=== PATIENT | female | born 1995 | race Caucasian/White ===

== ENCOUNTER → 2023-06-07 13:11 | Outpatient (REF) | payer BC, SELFPAY ==
[2023-06-07 13:47] LABS: Urine Albumin Negative (Neg - Trace); Urine Bilirubin Negative (Negative); Urine Character Clear (Clear); Urine Color Yellow; Urine Glucose Negative (Negative); Urine Ketone Negative (Negative); Urine Leukocyte Negative (Negative); Urine Nitrite Negative (Negative); Urine Occult Blood Negative (Negative); Urine Urobilinogen Negative (Neg - 1+)
[2023-06-07 13:49] LABS: % Basophils 0.3 % (0-2); % Eosinophils 0.8 % (0-6); % Immature Granulocytes 0.3 % (0-0.5); % Lymphocytes 23.1 % (20.5-51.1); % Monocytes 7.3 % (1.7-9.3); % Neutrophils 68.2 % (42.2-75.2); Absolute Eosinophils 0.1 10^3/uL (0-0.7); Absolute Lymphocytes 1.5 10^3/uL (1.2-3.4); Absolute Monocytes 0.5 10^3/uL (0.1-0.6); Absolute Neutrophils 4.3 10^3/uL (1.4-6.5); Hematocrit 34.6 % (37.0-47.0); Hemoglobin 12.3 g/dL (12.0-16.0); Mean Corp Hgb Conc. 35.5 g/dL (33.0-37.0); Mean Corpuscular Hgb 30.2 pg (27.0-31.0); Mean Platelet Volume 10.9 fL (7.4-10.4); Nucleated Red Blood Cells % 0 %; Platelet Count 255 10^3/uL (130-400); Red Blood Cell Count 4.07 10^6/uL (4.20-5.40); Red Cell Dist. Width 12.9 % (11.5-14.5); White Blood Cell Count 6.3 10^3/uL (4.8-10.8)
[2023-06-07 14:43] LABS: Free T4 0.85 ng/dl (0.78-2.19)
[2023-06-07 14:57] LABS: TSH 9.82 uIU/ml (0.47-4.68)
[2023-06-07 14:59] LABS: Hepatitis B Surface Antigen Negative (Negative)
[2023-06-07 15:08] LABS: HIV Combo Negative (Negative)
[2023-06-07 19:40] LABS: Rubella Positive
[2023-06-07 21:15] LABS: Hepatitis C Antibody Negative (Negative)
[2023-06-08 14:27] LABS: Syphilis/T. pallidum Ab Reflex Negative (Negative)
== END ==
LOC: REG 13:11
PROVIDERS: ATTENDING PHYSICIAN Nurse Practitioner Family; FAMILY PHYSICIAN Nurse Practitioner Adult Health
DX: Z34.90 Encounter for supervision of normal pregnancy, unspecified, unspecified trimester (principal)
CPT/HCPCS: 36415; 80055; 81003; 84439; 84443; 84702; 86803; 86850; 86900; 86901; 87086; 87389

== ENCOUNTER → 2023-07-04 11:55 | Outpatient (REF) | payer BC, SELFPAY ==
[2023-07-04 14:26] LABS: Free T4 0.88 ng/dl (0.78-2.19)
[2023-07-04 14:40] LABS: TSH 5.95 uIU/ml (0.47-4.68)
== END ==
LOC: REG 11:55
PROVIDERS: ATTENDING PHYSICIAN Nurse Practitioner Adult Health
DX: R94.6 Abnormal results of thyroid function studies (principal); E04.9 Nontoxic goiter, unspecified
CPT/HCPCS: 36415; 84439; 84443

== ENCOUNTER → 2023-07-17 16:24 | Outpatient (REF) | payer BC, SELFPAY | LOC: PNTC 16:24 | PROVIDERS: ATTENDING PHYSICIAN Obstetrics & Gynecology | DX: Z36.0 Encounter for antenatal screening for chromosomal anomalies (principal); Z36.82 Encounter for antenatal screening for nuchal translucency | CPT/HCPCS: 36415; 76801; 76813 ==

== ENCOUNTER → 2023-07-25 17:10 | Outpatient (REF) | payer BC, SELFPAY | LOC: CLAB 17:10 | PROVIDERS: ATTENDING PHYSICIAN Obstetrics & Gynecology | DX: Z34.90 Encounter for supervision of normal pregnancy, unspecified, unspecified trimester (principal); Z11.3 Encounter for screening for infections with a predominantly sexual mode of transmission | CPT/HCPCS: 87491; 87591 ==

== ENCOUNTER → 2023-08-08 15:27 | Outpatient (REF) | payer BC, SELFPAY | LOC: PNTC 15:27 | PROVIDERS: ATTENDING PHYSICIAN Obstetrics & Gynecology | DX: O35.5XX0 Maternal care for (suspected) damage to fetus by drugs, not applicable or unspecified (principal); Q51.3 Bicornate uterus | CPT/HCPCS: 76805 ==

== ENCOUNTER → 2023-09-04 16:28 | Outpatient (REF) | payer BC, SELFPAY | LOC: PNTC 16:28 | PROVIDERS: ATTENDING PHYSICIAN Obstetrics & Gynecology | DX: O35.5XX0 Maternal care for (suspected) damage to fetus by drugs, not applicable or unspecified (principal); Q51.3 Bicornate uterus | CPT/HCPCS: 76811 ==

== ENCOUNTER → 2023-10-17 10:37 | Outpatient (REF) | payer BC, SELFPAY ==
[2023-10-17 12:57] LABS: TSH Reflex To Free T4 2.03 uIU/ml (0.47-4.68)
== END ==
LOC: REG 10:37
PROVIDERS: ATTENDING PHYSICIAN Obstetrics & Gynecology; FAMILY PHYSICIAN Nurse Practitioner Adult Health
DX: E03.9 Hypothyroidism, unspecified (principal)
CPT/HCPCS: 36415; 84443

== ENCOUNTER → 2023-10-17 15:35 | Outpatient (REF) | payer BC, SELFPAY | LOC: PNTC 15:35 | PROVIDERS: ATTENDING PHYSICIAN Obstetrics & Gynecology | DX: Q51.3 Bicornate uterus (principal); O35.5XX0 Maternal care for (suspected) damage to fetus by drugs, not applicable or unspecified | CPT/HCPCS: 76816 ==

== ENCOUNTER → 2023-10-23 15:08 | Outpatient (REF) | payer BC, SELFPAY ==
[2023-10-23 16:50] LABS: Hematocrit 29.8 % (37.0-47.0); Hemoglobin 10.3 g/dL (12.0-16.0); Mean Corp Hgb Conc. 34.6 g/dL (33.0-37.0); Mean Corpuscular Hgb 29.3 pg (27.0-31.0); Mean Corpuscular Volume 84.7 fL (81.0-99.0); Mean Platelet Volume 12.3 fL (7.4-10.4); Platelet Count 180 10^3/uL (130-400); Red Blood Cell Count 3.52 10^6/uL (4.20-5.40); Red Cell Dist. Width 12.7 % (11.5-14.5); White Blood Cell Count 7.2 10^3/uL (4.8-10.8)
[2023-10-23 17:17] LABS: 1 Hour after 50gm 149 mg/dl
== END ==
LOC: REG 15:08
PROVIDERS: ATTENDING PHYSICIAN Obstetrics & Gynecology
DX: Z34.82 Encounter for supervision of other normal pregnancy, second trimester (principal)
CPT/HCPCS: 36415; 82950; 85027; 86780

== ENCOUNTER → 2023-11-28 15:33 | Outpatient (REF) | payer BC, SELFPAY | LOC: PNTC 15:33 | PROVIDERS: ATTENDING PHYSICIAN Obstetrics & Gynecology | DX: O99.320 Drug use complicating pregnancy, unspecified trimester (principal); Q51.3 Bicornate uterus | CPT/HCPCS: 76816 ==

== ENCOUNTER → 2023-12-17 06:40 | Outpatient (REF) | payer BC, SELFPAY ==
[2023-12-17 08:50] LABS: ALT (SGPT) 20 U/L (0-35); AST (SGOT) 25 U/L (14-36); Albumin 3.4 g/dl (3.5-5.0); Alkaline Phosphatase 174 U/L (38-126); Blood Urea Nitrogen 9 mg/dl (7-17); Calcium 8.8 mg/dl (8.4-10.2); Carbon Dioxide 20 mmol/L (22-30); Chloride 105 mmol/L (98-107); Glucose 79 mg/dl (70-99); Potassium 4.3 mmol/L (3.5-5.1); Sodium 136 mmol/L (135-145); Total Bilirubin 0.2 mg/dl (0.2-1.3); Total Cholesterol 311 mg/dl (50-199); Total Protein 5.9 g/dl (6.3-8.2); Triglyceride 223 mg/dl (10-149); Very Low Density Lipoprotein 44 mg/dl (0-30); eGFR > 60.00
[2023-12-17 08:54] LABS: % Basophils 0.3 % (0-2); % Eosinophils 0.9 % (0-6); % Immature Granulocytes 0.7 % (0-0.5); % Lymphocytes 19.2 % (20.5-51.1); % Monocytes 9.9 % (1.7-9.3); Absolute Eosinophils 0.1 10^3/uL (0-0.7); Absolute Immature Granulocytes 0.1 10^3/uL (0-0.05); Absolute Lymphocytes 1.5 10^3/uL (1.2-3.4); Absolute Monocytes 0.8 10^3/uL (0.1-0.6); Absolute Neutrophils 5.3 10^3/uL (1.4-6.5); Hematocrit 30.6 % (37.0-47.0); Hemoglobin 9.7 g/dL (12.0-16.0); Mean Corp Hgb Conc. 31.7 g/dL (33.0-37.0); Mean Corpuscular Hgb 25.1 pg (27.0-31.0); Mean Corpuscular Volume 79.3 fL (81.0-99.0); Mean Platelet Volume 13.2 fL (7.4-10.4); Nucleated Red Blood Cells % 0 %; Platelet Count 167 10^3/uL (130-400); Red Blood Cell Count 3.86 10^6/uL (4.20-5.40); Red Cell Dist. Width 14.2 % (11.5-14.5); White Blood Cell Count 7.6 10^3/uL (4.8-10.8)
[2023-12-17 09:15] LABS: TSH 3.14 uIU/ml (0.47-4.68)
[2023-12-17 10:05] LABS: HDL Cholesterol 115 mg/dl; LDL Cholesterol, Calculated 152 mg/dl
[2023-12-17 14:54] LABS: Iron 235 ug/dl (37-170)
[2023-12-17 15:06] LABS: Percent Saturation 45 % (20-50); Total Iron Binding Capacity 522 ug/dl (265-497)
[2023-12-17 15:31] LABS: Ferritin 6.4 ng/ml (6.24-137)
== END ==
LOC: REG 06:40
PROVIDERS: ATTENDING PHYSICIAN Nurse Practitioner Adult Health
DX: Z00.00 Encounter for general adult medical examination without abnormal findings (principal)
CPT/HCPCS: 36415; 80053; 80061; 82728; 83540; 83550; 84443; 85025

== ENCOUNTER 2023-12-24 10:50 | Outpatient (RCR) | payer BC, SELFPAY ==
[2023-12-24 11:00] VITALS: BP 125/69
[2023-12-24] MEDS: VENOFER 110 MG IV (11:05)
[2023-12-24 12:09] VITALS: BP 114/67
== END 2023-12-24 23:59 | disposition home or self-care (01) ==
LOC: OID 10:50
PROVIDERS: ATTENDING PHYSICIAN Internal Medicine Hematology & Oncology; FAMILY PHYSICIAN Nurse Practitioner Adult Health
DX: D50.9 Iron deficiency anemia, unspecified (principal); O99.013 Anemia complicating pregnancy, third trimester; R06.02 Shortness of breath; R53.83 Other fatigue; N92.0 Excessive and frequent menstruation with regular cycle; T45.4X5A Adverse effect of iron and its compounds, initial encounter; Y93.89 Activity, other specified
CPT/HCPCS: 96365; J1756

== ENCOUNTER → 2023-12-27 15:38 | Outpatient (REF) | payer BC, SELFPAY | LOC: PNTC 15:38 | PROVIDERS: ATTENDING PHYSICIAN Obstetrics & Gynecology | DX: O99.320 Drug use complicating pregnancy, unspecified trimester (principal); Q51.3 Bicornate uterus | CPT/HCPCS: 76816 ==

== ENCOUNTER → 2023-12-27 16:18 | Outpatient (REF) | payer BC, SELFPAY | LOC: CPAP 16:18 | PROVIDERS: ATTENDING PHYSICIAN Obstetrics & Gynecology | DX: Z36.85 Encounter for antenatal screening for Streptococcus B (principal); Z34.83 Encounter for supervision of other normal pregnancy, third trimester | CPT/HCPCS: 87070 ==

== ENCOUNTER 2024-01-09 14:36 | Outpatient (RCR) | payer BC, SELFPAY ==
[2023-12-28 11:45] VITALS: BP 136/66
[2023-12-28] MEDS: VENOFER 110 MG IV (11:47)
[2023-12-28 13:00] VITALS: BP 112/64
[2023-12-31] MEDS: VENOFER 110 MG IV (13:27)
[2023-12-31 13:31] VITALS: BP 117/67
[2024-01-03 11:45] VITALS: BP 132/73
[2024-01-03] MEDS: VENOFER 110 MG IV (12:01)
[2024-01-03 13:00] LABS: % Basophils 0.7 % (0-2); % Eosinophils 0.3 % (0-6); % Immature Granulocytes 0.2 % (0-0.5); % Lymphocytes 21.4 % (20.5-51.1); % Neutrophils 69.4 % (42.2-75.2); Absolute Lymphocytes 1.2 10^3/uL (1.2-3.4); Absolute Monocytes 0.5 10^3/uL (0.1-0.6); Hematocrit 31.9 % (37.0-47.0); Hemoglobin 10.5 g/dL (12.0-16.0); Mean Corp Hgb Conc. 32.9 g/dL (33.0-37.0); Mean Corpuscular Hgb 26.8 pg (27.0-31.0); Mean Corpuscular Volume 81.4 fL (81.0-99.0); Mean Platelet Volume 12.5 fL (7.4-10.4); Platelet Count 166 10^3/uL (130-400); Red Blood Cell Count 3.92 10^6/uL (4.20-5.40); Red Cell Dist. Width 17.9 % (11.5-14.5); White Blood Cell Count 5.8 10^3/uL (4.8-10.8)
[2024-01-03 13:05] VITALS: BP 114/74
[2024-01-09 14:59] LABS: % Basophils 0.7 % (0-2); % Eosinophils 0.4 % (0-6); % Immature Granulocytes 0.2 % (0-0.5); % Lymphocytes 24.5 % (20.5-51.1); % Monocytes 6.2 % (1.7-9.3); Absolute Lymphocytes 1.3 10^3/uL (1.2-3.4); Absolute Monocytes 0.3 10^3/uL (0.1-0.6); Absolute Neutrophils 3.7 10^3/uL (1.4-6.5); Hematocrit 32.7 % (37.0-47.0); Hemoglobin 10.8 g/dL (12.0-16.0); Mean Corpuscular Hgb 26.9 pg (27.0-31.0); Mean Corpuscular Volume 81.3 fL (81.0-99.0); Mean Platelet Volume 11.8 fL (7.4-10.4); Platelet Count 144 10^3/uL (130-400); Red Blood Cell Count 4.02 10^6/uL (4.20-5.40); Red Cell Dist. Width 19.1 % (11.5-14.5); White Blood Cell Count 5.5 10^3/uL (4.8-10.8)
[2024-01-09] MEDS: VENOFER 110 MG IV (15:01)
[2024-01-09 15:10] VITALS: BP 120/73
[2024-01-09 16:01] VITALS: BP 117/75
== END 2024-01-24 23:59 | disposition home or self-care (01) ==
LOC: OID 14:36
PROVIDERS: ATTENDING PHYSICIAN Internal Medicine Hematology & Oncology; FAMILY PHYSICIAN Nurse Practitioner Adult Health
DX: D50.9 Iron deficiency anemia, unspecified (principal); D63.8 Anemia in other chronic diseases classified elsewhere; Z3A.36 36 weeks gestation of pregnancy
CPT/HCPCS: 36415; 85025; 96365; J1756

== ENCOUNTER 2024-01-12 22:25 | Inpatient (IN) | payer BC, SELFPAY ==
[2024-01-12 22:44] VITALS: BMI 26.3
[2024-01-12 23:12] LABS: % Basophils 0.2 % (0-2); % Eosinophils 0.3 % (0-6); % Immature Granulocytes 0.1 % (0-0.5); % Lymphocytes 16.8 % (20.5-51.1); % Neutrophils 74.6 % (42.2-75.2); Absolute Lymphocytes 1.5 10^3/uL (1.2-3.4); Absolute Monocytes 0.7 10^3/uL (0.1-0.6); Absolute Neutrophils 6.6 10^3/uL (1.4-6.5); Hematocrit 30.7 % (37.0-47.0); Hemoglobin 10.3 g/dL (12.0-16.0); Mean Corp Hgb Conc. 33.6 g/dL (33.0-37.0); Mean Corpuscular Hgb 26.5 pg (27.0-31.0); Mean Corpuscular Volume 78.9 fL (81.0-99.0); Mean Platelet Volume 12.2 fL (7.4-10.4); Nucleated Red Blood Cells % 0 %; Platelet Count 162 10^3/uL (130-400); Red Blood Cell Count 3.89 10^6/uL (4.20-5.40); Red Cell Dist. Width 19.5 % (11.5-14.5); White Blood Cell Count 8.9 10^3/uL (4.8-10.8)
[2024-01-12] MEDS: LR 1000 IV ×2 (23:20→23:53)
[2024-01-12] MEDS: SUBLIMAZE 100 MCG EPIDURAL (23:35)
[2024-01-12] MEDS: FENTANYL/BUPIVACAINE 100 EPIDURAL (23:35)
[2024-01-13] MEDS: LR 1000 IV (03:39)
[2024-01-13 04:02] VITALS: BP 127/78
[2024-01-13] MEDS: PITOCIN 30 UNITS/NSS 500 ML IV (07:48)
[2024-01-13] MEDS: FENTANYL/BUPIVACAINE 100 EPIDURAL (08:59)
[2024-01-14] MEDS: MOTRIN 600 MG PO (03:41)
[2024-01-14] MEDS: TYLENOL 650 MG PO (03:41)
[2024-01-14 04:15] LABS: Hemoglobin 9.4 g/dL (12.0-16.0)
[2024-01-14] MEDS: SYNTHROID 88 MCG PO (05:58)
[2024-01-14] MEDS: PRENATAL PLUS 1 TABLET PO (09:29)
[2024-01-15 16:26] LABS: Syphilis/T. pallidum Ab Reflex Negative (Negative)
== END 2024-01-14 17:16 | disposition home or self-care (01) | DRG 806 ==
LOC: LDRP 22:25
PROVIDERS: ADMITTING PHYSICIAN Obstetrics & Gynecology; FAMILY PHYSICIAN Nurse Practitioner Adult Health
PROC: 0HQ9XZZ Repair Perineum Skin, External Approach (ICD-10-PCS; 2024-01-13)
PROC: 10E0XZZ Delivery of Products of Conception, External Approach (ICD-10-PCS; 2024-01-13)
DX: O34.03 Maternal care for unspecified congenital malformation of uterus, third trimester (principal); O98.32 Other infections with a predominantly sexual mode of transmission complicating childbirth; Z37.0 Single live birth; O99.284 Endocrine, nutritional and metabolic diseases complicating childbirth; E03.9 Hypothyroidism, unspecified; Z3A.39 39 weeks gestation of pregnancy; O70.0 First degree perineal laceration during delivery; A60.00 Herpesviral infection of urogenital system, unspecified; O99.344 Other mental disorders complicating childbirth; F41.9 Anxiety disorder, unspecified; O99.02 Anemia complicating childbirth; D64.9 Anemia, unspecified; Q51.3 Bicornate uterus; Z98.82 Breast implant status; Z83.3 Family history of diabetes mellitus; Z82.49 Family history of ischemic heart disease and other diseases of the circulatory system; Z80.8 Family history of malignant neoplasm of other organs or systems; Z87.891 Personal history of nicotine dependence
CPT/HCPCS: 85014; 85018; 85025; 86780; 86850; 86900; 86901

== ENCOUNTER → 2024-02-18 07:12 | Outpatient (REF) | payer BC, SELFPAY ==
[2024-02-18 08:49] LABS: TSH Reflex To Free T4 1.79 uIU/ml (0.47-4.68)
== END ==
LOC: REG 07:12
PROVIDERS: ATTENDING PHYSICIAN Nurse Practitioner Adult Health
DX: O90.5 Postpartum thyroiditis (principal)
CPT/HCPCS: 36415; 84443

== ENCOUNTER → 2024-04-10 16:07 | Outpatient (REF) | payer BC, SELFPAY | LOC: MRI 3T 16:07 | PROVIDERS: ATTENDING PHYSICIAN Nurse Practitioner Adult Health | DX: R51.9 Headache, unspecified (principal) | CPT/HCPCS: 70551 ==

== ENCOUNTER → 2025-02-18 14:14 | Outpatient (REF) | payer BC, SELFPAY | LOC: PAVMRI 14:14 | PROVIDERS: ATTENDING PHYSICIAN Nurse Practitioner Adult Health | DX: G93.9 Disorder of brain, unspecified (principal) | CPT/HCPCS: 70553; A9575 ==

== ENCOUNTER → 2025-03-16 06:41 | Outpatient (REF) | payer BC, SELFPAY ==
[2025-03-16 07:49] LABS: Hematocrit 39.9 % (37.0-47.0); Hemoglobin 13.2 g/dL (12.0-16.0); Mean Corp Hgb Conc. 33.1 g/dL (33.0-37.0); Mean Corpuscular Volume 88.9 fL (81.0-99.0); Nucleated Red Blood Cells % 0 %; Platelet Count 256 10^3/uL (130-400); Red Cell Dist. Width 13.0 % (11.5-14.5)
[2025-03-16 09:00] LABS: Ferritin 22.3 ng/ml (6.24-137)
[2025-03-16 09:16] LABS: ALT (SGPT) 13 U/L (0-35); AST (SGOT) 18 U/L (14-36); Albumin 4.7 g/dl (3.5-5.0); Alkaline Phosphatase 49 U/L (38-126); Blood Urea Nitrogen 12 mg/dl (7-17); Calcium 9.6 mg/dl (8.4-10.2); Carbon Dioxide 29 mmol/L (22-30); Chloride 101 mmol/L (98-107); Glucose 95 mg/dl (70-99); HDL Cholesterol 107 mg/dl; Iron 88 ug/dl (37-170); LDL Cholesterol, Calculated 99 mg/dl; Potassium 4.6 mmol/L (3.5-5.1); Sodium 136 mmol/L (135-145); Total Protein 7.7 g/dl (6.3-8.2); Very Low Density Lipoprotein 19 mg/dl (0-30); eGFR > 60.00
[2025-03-16 09:25] LABS: Total Iron Binding Capacity 305 ug/dl (265-497)
== END ==
LOC: REG 06:41
PROVIDERS: ATTENDING PHYSICIAN Nurse Practitioner Adult Health
DX: R94.6 Abnormal results of thyroid function studies (principal); Z00.00 Encounter for general adult medical examination without abnormal findings
CPT/HCPCS: 36415; 80053; 80061; 82728; 83540; 83550; 84439; 84443; 85025